=== PATIENT | male | born 1985 | race Two or more races ===

== ENCOUNTER 2020-04-02 21:30 | Emergency (ER) | payer SELFPAY ==
[~2020-04-02] VITALS: Ht 177.8 cm; Wt 74.8 kg
[2020-04-02 21:30] VITALS: BP 142/79
--- NOTE | 2020-04-02 21:35 | NUR ---
PT AMBULATORY TO ER BED 7 WITH STEADY GAIT. WHILE HOOKING UP PATIENT TO MONITOR, PT STATES "BEING BACK HERE IS GIVING ME MORE ANXIETY, I'M JUST GOING TO LEAVE". PT DECIDED TO LEAVE BEFORE MD EVALUATION. RISKS AND BENEFITS EXPLAINED TO PATIENT 3X, PT VERBALIZED UNDERSTANDING. MD AWARE
== END 2020-04-02 21:47 | disposition left against medical advice (07) ==
LOC: ER 21:32
DX: Z53.21 Procedure and treatment not carried out due to patient leaving prior to being seen by health care provider (principal); R06.02 Shortness of breath; J45.909 Unspecified asthma, uncomplicated